=== PATIENT | female | born 1975 | race Two or more races ===

== ENCOUNTER 2017-07-28 11:11 | Emergency (ER) | payer SELFPAY ==
[~2017-07-28] VITALS: Ht 160 cm; Wt 112.0 kg
[2017-07-28 11:11] VITALS: BP 115/70
== END 2017-07-28 12:38 | disposition home or self-care (01) ==
LOC: ER 11:13
DX: H61.21 Impacted cerumen, right ear (principal)
CPT/HCPCS: 99282; A4606; Z7610

== ENCOUNTER 2017-08-05 19:17 | Emergency (ER) | payer MEDICAID ==
[~2017-08-05] VITALS: Ht 160 cm; Wt 113.4 kg
[2017-08-05 19:33] VITALS: BP 125/69
== END 2017-08-05 21:02 | disposition home or self-care (01) ==
LOC: ER 19:19
DX: H92.03 Otalgia, bilateral (principal); J06.9 Acute upper respiratory infection, unspecified; E11.9 Type 2 diabetes mellitus without complications
CPT/HCPCS: 99283; A4606; Z7610

== ENCOUNTER 2017-09-02 18:02 | Emergency (ER) | payer MEDICAID ==
[~2017-09-02] VITALS: Ht 160 cm; Wt 117.9 kg
--- NOTE | 2017-09-02 19:00 | NUR ---
PT BIBSELF AMBULATORY TO ER BED 5 FOR FACIAL RASH/SWELLING SINCE THIS MORNING. POOR HISTORIAN. PT AOX3 RR EVEN AND UNLABORED. NO SOB NOTED. NO NVD AT THIS TIME. PT NOT DIAPHORETIC. PT PLACED ON MONITOR. PAC PRUSHA AT BEDSIDE FOR EVAL.
[2017-09-02 19:23] VITALS: BP 118/74
== END 2017-09-02 19:32 | disposition home or self-care (01) ==
LOC: ER 18:04
DX: L08.9 Local infection of the skin and subcutaneous tissue, unspecified (principal); R21 Rash and other nonspecific skin eruption
CPT/HCPCS: 99284; A4606; J7512; Q0163; Z7610

== ENCOUNTER 2019-10-10 12:22 | Emergency (ER) | payer MEDICAID ==
[~2019-10-10] VITALS: Ht 160 cm; Wt 113.4 kg
--- NOTE | 2019-10-10 12:25 | NUR ---
AAOX3, CAME TO ER C/O ON/OFF LEFT SIDED CP RADIATES TO LEFT SHOULDER SINCE THIS AM. RR IS EVEN AND UNLABORED WITH NAD NOTED. SKIN IS WARM AND DRY. PLACED ON THE MONITOR. AWAITING MD FOR EVAL.
--- NOTE | 2019-10-10 12:35 | NUR ---
EKG IN PROGRESS AT BS
--- NOTE | 2019-10-10 12:40 | NUR ---
EKG - DUPLICATE ORDER
[2019-10-10 12:45] LABS: BASOPHILS # (AUTO) 0.1 /CMM (0.0-0.2); BASOPHILS % (AUTO) 0.7 % (0.0-2.0); HEMATOCRIT 41 % (33-45); HEMOGLOBIN 13.2 g/dL (11.5-14.8); LYMPHOCYTES # (AUTO) 2.6 /CMM (0.8-4.8); LYMPHOCYTES % (AUTO) 32.6 % (20.0-44.0); MEAN CORPUSCULAR HGB CONC 33 g/dl (31.0-36.0); MEAN CORPUSCULAR VOLUME 81 fL (82-100); MONOCYTES # (AUTO) 0.5 /CMM (0.1-1.30); MONOCYTES % (AUTO) 6.2 % (2.0-12.0); NEUTROPHILS # (AUTO) 4.8 /CMM (1.8-8.9); NEUTROPHILS % (AUTO) 59.5 % (43.0-81.0); PLATELET COUNT (AUTO) 273 /CMM (150-450); RED BLOOD CELL COUNT(AUTO) 5.03 MIL/uL (4.0-5.2)
[2019-10-10 13:09] LABS: ALANINE AMINOTRANSFERASE 18 U/L (12-78); ALBUMIN 4.1 g/dL (3.4-5.0); ALKALINE PHOSPHATASE 61 U/L (46-116); ASPARTATE AMINOTRANSFERASE 15 U/L (15-37); BILIRUBIN,DIRECT 0.1 mg/dL (0.0-0.2); BILIRUBIN,TOTAL 0.7 mg/dL (0.2-1.0); CALCIUM, SERUM 9.6 mg/dL (8.5-10.1); CARBON DIOXIDE 27 mmol/L (21-32); CHLORIDE 102 mmol/L (98-107); CREATININE 0.7 mg/dL (0.6-1.3); GLUCOSE 89 mg/dL (74-106); POTASSIUM 3.5 mmol/L (3.5-5.1); SODIUM SERUM 139 mmol/L (136-145); TOTAL PROTEIN, SERUM 8.2 g/dL (6.4-8.2); UREA NITROGEN, BLOOD 14 mg/dL (7-18)
--- NOTE | 2019-10-10 13:09 | NUR ---
sherly at bedside for x-ray
[2019-10-10 14:51] VITALS: BP 120/71
--- NOTE | 2019-10-10 14:51 | NUR ---
Patient discharged to home in stable condition. Written and verbal after care instructions given. Patient verbalizes understanding of instruction.IV removed. Catheter intact and site benign. Pressure and 4x4 applied to site. No bleeding noted.
== END 2019-10-10 14:51 | disposition home or self-care (01) ==
LOC: ER 12:22
DX: R07.89 Other chest pain (principal); M25.561 Pain in right knee
CPT/HCPCS: 36415; 71045-TC; 73564-TC; 80048-TC; 80076-TC; 84484-TC; 84702-TC; 85025-TC

== ENCOUNTER 2019-10-29 13:48 | Emergency (ER) | payer MEDICAID ==
[~2019-10-29] VITALS: Ht 160 cm; Wt 111.1 kg
[2019-10-29 13:55] VITALS: BP 136/74
--- NOTE | 2019-10-29 14:17 | NUR ---
Pt came in for r leg pain 06/01. pt aaox4, breathing even and unlabored on room air w/ nad. Will continue to monitor
--- NOTE | 2019-10-29 14:41 | NUR ---
Patient discharged to home in stable condition. Written and verbal after care instructions given. Patient verbalizes understanding of instruction.
== END 2019-10-29 14:13 | disposition home or self-care (01) ==
LOC: ER 13:51
DX: B02.9 Zoster without complications (principal)

== ENCOUNTER 2019-10-29 14:27 | Emergency (ER) | payer MEDICAID ==
--- NOTE | 2019-10-29 14:36 | NUR ---
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
--- NOTE | 2019-10-29 14:39 | NUR ---
Patient discharged to home in stable condition. Written and verbal after care instructions given. Patient verbalizes understanding of instruction.
== END 2019-10-29 14:41 | disposition home or self-care (01) ==
LOC: ER 14:29
DX: Z75.3 Unavailability and inaccessibility of health-care facilities (principal)

== ENCOUNTER 2022-05-08 11:48 | Emergency (ER) | payer MEDICAID, OTHER ==
[~2022-05-08] VITALS: Ht 160 cm; Wt 117.9 kg
--- NOTE | 2022-05-08 12:25 | NUR ---
To ER bed 2, c/o "Face Itching/redness/lip swelling xcouple days", aaox3, breathing even and non labored, connected to monitor, awaiting md gonzalez
[2022-05-08] MEDS ORDERED: FAMOTIDINE/PF INJ 20 MG/2 ML VIAL IV ONE ×2 (12:30→12:33)
[2022-05-08] MEDS ORDERED: diphenhydrAMINE HCL 50 MG/ML VIAL IV ONE (12:30)
[2022-05-08] MEDS ORDERED: IV NS 0.9% 1,000 ML BAG IV ONE (12:30)
[2022-05-08] MEDS ORDERED: methylPREDNISolone SOD SUCC 125 MG/2ML VIAL IV ONE (12:30)
[2022-05-08] MEDS ORDERED: diphenhydrAMINE HCL 50 MG/ML VIAL ONE (12:32)
[2022-05-08] MEDS ORDERED: methylPREDNISolone SOD SUCC 125 MG/2ML VIAL ONE (12:33)
[2022-05-08] MEDS ORDERED: LORA10TA7 PO (13:39)
[2022-05-08] MEDS ORDERED: MELA5TAB PO (13:39)
[2022-05-08] MEDS ORDERED: PRED50TA PO (13:39)
--- NOTE | 2022-05-08 14:19 | NUR ---
IV removed. Catheter intact and site benign. Pressure and 4x4 applied to site. No bleeding noted.Patient discharged to home in stable condition. Written and verbal after care instructions given. Patient verbalizes understanding of instruction.
[2022-05-08 14:20] VITALS: BP 123/60
== END 2022-05-08 14:20 | disposition home or self-care (01) ==
LOC: ER 11:55
DX: L50.9 Urticaria, unspecified (principal); Z79.899 Other long term (current) drug therapy
CPT/HCPCS: 96361; 96374; 96375; 99284; J1200; J2930; J3490; J7030

== ENCOUNTER 2022-12-11 14:00 | Emergency (ER) | payer OTHER ==
[~2022-12-11] VITALS: Ht 160 cm; Wt 127.5 kg
[~2022-12-11 14:00] MED LIST: LORA10TA7 PO; MELA5TAB PO; PRED50TA PO
--- NOTE | 2022-12-11 14:15 | NUR ---
AMBULATED TO ER 14 AWAITNG MD PARRA.
[2022-12-11] MEDS ORDERED: ACETAMINOPHEN 325 MG TABLET PO ONE (15:00)
[2022-12-11] MEDS ORDERED: ACETAMINOPHEN ES 500 MG TABLET ONE (15:06)
[2022-12-11] MEDS ORDERED: ACETAMINOPHEN 325 MG TABLET ONE (15:11)
--- NOTE | 2022-12-11 15:11 | NUR ---
TYLENOL PO GIVEN INDICATED, COURTNEY WELL
--- NOTE | 2022-12-11 19:19 | NUR ---
Patient discharged to home in stable condition. Written and verbal after care instructions given. Patient verbalizes understanding of instruction.
[2022-12-11 19:20] VITALS: BP 124/72
== END 2022-12-11 19:20 | disposition home or self-care (01) ==
LOC: ER 14:05
DX: M79.652 Pain in left thigh (principal); Z87.81 Personal history of (healed) traumatic fracture; Z79.899 Other long term (current) drug therapy
CPT/HCPCS: 73552; 73590-TC; 93971-TC

== ENCOUNTER 2023-06-04 11:18 | Emergency (ER) | payer OTHER ==
[~2023-06-04] VITALS: Ht 157.5 cm; Wt 127.9 kg
[2023-06-04 12:13] LABS: BASOPHILS # (AUTO) 0.1 K/uL (0.0-0.2); BASOPHILS % (AUTO) 0.9 % (0.0-2.0); EOSINOPHILS % (AUTO) 1.3 % (0.0-6.0); HEMATOCRIT 41 % (33-45); HEMOGLOBIN 12.9 g/dL (11.5-14.8); LYMPHOCYTES # (AUTO) 2.3 K/uL (0.8-4.8); LYMPHOCYTES % (AUTO) 33.9 % (20.0-44.0); MEAN CORPUSCULAR HGB CONC 32 g/dl (31.0-36.0); MEAN CORPUSCULAR VOLUME 81 fL (82-100); MONOCYTES # (AUTO) 0.4 K/uL (0.1-1.30); MONOCYTES % (AUTO) 6.3 % (2.0-12.0); NEUTROPHILS % (AUTO) 57.6 % (43.0-81.0); PLATELET COUNT (AUTO) 274 K/uL (150-450); RED BLOOD CELL COUNT(AUTO) 5.03 MIL/uL (4.0-5.2); WHITE BLOOD COUNT (AUTO) 6.9 K/uL (4.3-11.0)
--- NOTE | 2023-06-04 12:14 | NUR ---
22G STARTED BLOOD DRAWN AND SENT TO LAB
[2023-06-04 12:26] LABS: CALCIUM, SERUM 10.4 mg/dL (8.5-10.1); CARBON DIOXIDE 22 mmol/L (21-32); CHLORIDE 104 mmol/L (98-107); CREATININE 0.6 mg/dL (0.6-1.3); GLUCOSE 112 mg/dL (74-106); SODIUM SERUM 138 mmol/L (136-145); UREA NITROGEN, BLOOD 13 mg/dL (7-18)
[2023-06-04 12:38] LABS: POTASSIUM 7.4 mmol/L (3.5-5.1)
--- NOTE | 2023-06-04 12:38 | NUR ---
URINE COLLECTED AND SENT TO LAB
--- NOTE | 2023-06-04 12:39 | NUR ---
RECEIVED CRITICAL LAB RESULT k 7.0. DR. MITTAL AWARE
[2023-06-04] MEDS ORDERED: KETOROLAC TROMETHAMINE INJ 30 MG/ML VIAL IV ONE (14:30)
[2023-06-04] MEDS ORDERED: ALBU18HF2 INH (14:31)
[2023-06-04] MEDS ORDERED: IBUP-1955 PO (14:34)
[2023-06-04] MEDS ORDERED: KETOROLAC TROMETHAMINE 15 MG/ML VIAL ONE (14:35)
--- NOTE | 2023-06-04 14:55 | NUR ---
POTASSIUM WAS RE DRAWN AND SHOWED WNL.
[2023-06-04 15:39] VITALS: BP 153/83; TEMP 98.5; O2SAT 100
== END 2023-06-04 15:40 | disposition home or self-care (01) ==
LOC: ER 11:24
DX: R07.89 Other chest pain (principal); Z79.899 Other long term (current) drug therapy
CPT/HCPCS: 99285; 96374; 71045; 93005; 85025; 80048; 36415; 84484 ×2; 84132; J1885

== ENCOUNTER 2024-02-17 12:49 | Emergency (ER) | payer OTHER ==
[~2024-02-17] VITALS: Ht 157.5 cm; Wt 129.3 kg
[~2024-02-17 12:49] MED LIST changes: +ALBU18HF2 INH; +IBUP-1955 PO
[2024-02-17 14:18] LABS: APPEARANCE,URINE Clear (CLEAR); BILIRUBIN,URINE Negative (NEGATIVE); BLOOD, URINE Negative Ery/uL (NEGATIVE); COLOR,URINE YELLOW (YELLOW); KETONES,URINE Negative (NEGATIVE); LEUKOCYTE ESTERASE ,URINE Negative (NEGATIVE); NITRITE, URINE Negative (NEGATIVE); PH,URINE 5.5 (5.0-8.0); PROTEIN,URINE Negative (NEGATIVE); UGLUCOSE Negative (NEGATIVE); UROBILINOGEN,URINE 0.2 EU/dL (0.2)
[2024-02-17 15:14] LABS: BASOPHILS % (AUTO) 0.3 % (0.0-2.0); EOSINOPHILS # (AUTO) 0.8 K/uL (0.0-0.7); HEMATOCRIT 40 % (33-45); HEMOGLOBIN 12.8 g/dL (11.5-14.8); LYMPHOCYTES # (AUTO) 2.3 K/uL (0.8-4.8); LYMPHOCYTES % (AUTO) 21.3 % (20.0-44.0); MEAN CORPUSCULAR HEMOGLOBIN 26 PG (26.0-33.0); MEAN CORPUSCULAR HGB CONC 32 g/dl (31.0-36.0); MEAN CORPUSCULAR VOLUME 80 fL (82-100); MONOCYTES # (AUTO) 0.7 K/uL (0.1-1.30); NEUTROPHILS # (AUTO) 7.2 K/uL (1.8-8.9); NEUTROPHILS % (AUTO) 65.4 % (43.0-81.0); PLATELET COUNT (AUTO) 282 K/uL (150-450); RED CELL DISTRIBUTION WIDTH 14.7 % (11.5-15.0); WHITE BLOOD COUNT (AUTO) 10.9 K/uL (4.3-11.0)
[2024-02-17 15:23] LABS: CALCIUM, SERUM 9.1 mg/dL (8.5-10.1); CREATININE 0.7 mg/dL (0.6-1.3); POTASSIUM 3.6 mmol/L (3.5-5.1)
[2024-02-17 15:28] LABS: ALBUMIN 3.6 g/dL (3.4-5.0); BILIRUBIN,DIRECT 0.1 mg/dL (0.0-0.2); BILIRUBIN,TOTAL 0.3 mg/dL (0.2-1.0); TOTAL PROTEIN, SERUM 7.8 g/dL (6.4-8.2)
[2024-02-17] MEDS ORDERED: IBUP-1955 PO (16:02)
[2024-02-17 16:25] VITALS: BP 112/78; TEMP 98.1; O2SAT 98
== END 2024-02-17 16:25 | disposition home or self-care (01) ==
LOC: ER 12:59
DX: R10.9 Unspecified abdominal pain (principal); Z79.899 Other long term (current) drug therapy
CPT/HCPCS: 36415; 80048-TC; 80076-TC; 83690-TC; 85025-TC

== ENCOUNTER 2024-06-26 14:02 | Emergency (ER) | payer OTHER ==
[~2024-06-26] VITALS: Ht 157.5 cm; Wt 127.7 kg
[2024-06-26 14:14] VITALS: BP 133/59; TEMP 98; O2SAT 97
[2024-06-26] MEDS ORDERED: EPIN0.3P3 IM (14:39)
[2024-06-26] MEDS ORDERED: FAMO20TA80 PO (14:39)
[2024-06-26] MEDS ORDERED: LORA10TA7 PO (14:39)
[2024-06-26] MEDS ORDERED: DIPH25TA62 PO (14:39)
[2024-06-26] MEDS ORDERED: PRED20TA PO (14:39)
[2024-06-26] MEDS ORDERED: EPINEPHRINE (1:1000) 1 MG/ML AMPUL ONE (14:44)
[2024-06-26] MEDS ORDERED: predniSONE 20 MG TABLET ONE (14:44)
[2024-06-26] MEDS ORDERED: diphenhydrAMINE HCL 50 MG CAPSULE ONE (14:45)
[2024-06-26] MEDS ORDERED: FAMOTIDINE (20 MG) 20 MG TABLET ONE (14:45)
[2024-06-26] MEDS: diphenhydrAMINE HCL 50 MG CAPSULE PO ONE (14:54)
[2024-06-26] MEDS: predniSONE 10 MG TABLET PO ONE (14:55)
[2024-06-26] MEDS: EPINEPHRINE (1:1000) 1 MG/ML AMPUL SUBCUT ONE (14:55)
[2024-06-26] MEDS: FAMOTIDINE (20 MG) 20 MG TABLET PO ONE (14:55)
== END 2024-06-26 14:58 | disposition home or self-care (01) ==
LOC: ER 14:02
DX: S51.831A Puncture wound without foreign body of right forearm, initial encounter (principal); L08.9 Local infection of the skin and subcutaneous tissue, unspecified; Z79.899 Other long term (current) drug therapy; Z79.1 Long term (current) use of non-steroidal anti-inflammatories (NSAID); Z79.52 Long term (current) use of systemic steroids; W57.XXXA Bitten or stung by nonvenomous insect and other nonvenomous arthropods, initial encounter; Y93.89 Activity, other specified; Y92.89 Other specified places as the place of occurrence of the external cause; Y99.8 Other external cause status
CPT/HCPCS: 99284; 96372; Q0163; J0171; J7512